=== PATIENT | female | born 1990 | race Two or more races ===

== ENCOUNTER 2021-05-27 15:41 | Outpatient (CLI) | payer OTHER | END 2021-05-27 16:57 | disposition home or self-care (01) | LOC: PRENATAL 15:41 | PROVIDERS: ATTEND Obstetrics & Gynecology Maternal & Fetal Medicine | DX: Z36.89 Encounter for other specified antenatal screening (principal); O36.80X1 Pregnancy with inconclusive fetal viability, fetus 1; Z3A.13 13 weeks gestation of pregnancy ==

== ENCOUNTER 2021-10-01 11:46 | Outpatient (CLI) | payer OTHER | END 2021-10-01 12:56 | disposition home or self-care (01) | LOC: PRENATAL 11:46 | PROVIDERS: ATTEND Obstetrics & Gynecology Maternal & Fetal Medicine | DX: O26.843 Uterine size-date discrepancy, third trimester (principal); O35.0XX1 Maternal care for (suspected) central nervous system malformation in fetus, fetus 1; Z36.89 Encounter for other specified antenatal screening; Z3A.32 32 weeks gestation of pregnancy ==

== ENCOUNTER 2021-11-06 12:31 | Inpatient (IN) | payer OTHER ==
[~2021-11-06] VITALS: Ht 165.1 cm; Wt 90.7 kg
[2021-11-17] MEDS ORDERED: PRENATAL PO (09:23)
[2021-11-17] MEDS ORDERED: EFFEXOR XR75 MG PO (09:24)
[2021-11-17] MEDS ORDERED: PRENATAL + DHA1 EAC1 PO (10:43)
== END 2021-11-20 16:11 | disposition home or self-care (01) | DRG 807 ==
LOC: LDR 12:31 → SURG-SUITE 11-18 16:17
PROVIDERS: ADMIT Obstetrics & Gynecology; ATTEND Obstetrics & Gynecology
PROC: 4A1HXCZ Monitoring of Products of Conception, Cardiac Rate, External Approach (ICD-10-PCS; 2021-11-17)
PROC: 10E0XZZ Delivery of Products of Conception, External Approach (ICD-10-PCS; principal; 2021-11-18)
PROC: 0HQ9XZZ Repair Perineum Skin, External Approach (ICD-10-PCS; 2021-11-18)
PROC: 3E033VJ Introduction of Other Hormone into Peripheral Vein, Percutaneous Approach (ICD-10-PCS; 2021-11-18)
DX: O70.0 First degree perineal laceration during delivery (principal); Z37.0 Single live birth; Z3A.39 39 weeks gestation of pregnancy